=== PATIENT | male | born 1945 | race Two or more races ===

== ENCOUNTER 2021-11-22 09:55 | Outpatient (CLI) | payer MEDICARE, BC | END 2021-11-22 23:59 | disposition home or self-care (01) | LOC: WOU 09:55 | PROVIDERS: ATTEND Specialist | DX: H53.133 Sudden visual loss, bilateral (principal); Z79.82 Long term (current) use of aspirin; Z79.02 Long term (current) use of antithrombotics/antiplatelets | CPT/HCPCS: G0463 ==